=== PATIENT | female | born 1995 | race Caucasian/White ===

== ENCOUNTER → 2018-10-23 16:10 | Outpatient (CLI) | payer OTHER, SELFPAY ==
[2017-05-12 20:39] VITALS: BMI 21.6
[2018-10-23 17:54] LABS: hCG Titer Quant., Serum < 1 mIU/mL (<9 non-preg)
== END ==
PROVIDERS: Referring Provider Obstetrics & Gynecology; Visit Provider Obstetrics & Gynecology
DX: Z32.01 Encounter for pregnancy test, result positive (principal)
CPT/HCPCS: 36415; 84702